=== PATIENT | male | born 1990 | race Caucasian/White ===

== ENCOUNTER → 2021-09-25 | Outpatient (CLI) | payer BC ==
[2021-09-25 10:22] LABS: BASO # 0.04 K/mm3 (0.02-0.10); EOS % 2.1 % (0.0-4.0); HEMOGLOBIN 14.8 g/dL (13.5-18.0); MEAN CELL VOLUME 85 fl (78-100); MEAN CORPUSCULAR HEMOGLOBIN 28 pg (27-31); MEAN CORPUSCULAR HGB CONC 33 g/dL (33-37); MEAN PLATELET VOLUME 9.6 fl (7.4-10.4); MONO # 0.45 K/mm3 (0.20-0.80); NEU # 2.83 K/mm3 (1.40-6.50); PLATELET COUNT 304 K/mm3 (130-400); RED CELL DISTRIBUTION WIDTH 11.9 % (11.5-14.5); WHITE BLOOD COUNT 4.8 K/mm3 (4.8-10.8)
[2021-09-25 10:28] LABS: ALBUMIN 4.3 g/dL (3.5-5.0); POTASSIUM 4.1 mmol/L (3.5-5.1)
[2021-09-25 10:29] LABS: CALCIUM 9.3 mg/dL (8.3-10.5)
[2021-09-25 10:31] LABS: TOTAL PROTEIN 7.5 g/dL (6.4-8.3)
[2021-09-25 10:32] LABS: TOTAL BILIRUBIN 0.6 mg/dL (0.2-1.2)
== END ==
LOC: LAB 10:00
PROVIDERS: Physician Assistant
DX: Z00.00 Encounter for general adult medical examination without abnormal findings (principal); Z13.1 Encounter for screening for diabetes mellitus; I10 Essential (primary) hypertension; Z83.3 Family history of diabetes mellitus; Z13.220 Encounter for screening for lipoid disorders

== ENCOUNTER 2024-11-02 14:37 | Emergency (ER) | payer OTHER ==
[~2024-11-02] VITALS: Ht 177.8 cm; Wt 112.7 kg
[2024-11-02] MEDS ORDERED: AMLODIPINE BESYL5 MG PO (14:55)
[2024-11-02] MEDS ORDERED: LISINOPRIL40 MG PO (14:55)
[2024-11-02 15:37] LABS: BASO # 0.03 K/mm3 (0.02-0.10); EOS # 0.06 K/mm3 (0.04-0.40); EOS % 0.8 % (0.0-4.0); HEMATOCRIT 46.5 % (42.0-52.0); HEMOGLOBIN 15.1 g/dL (13.5-18.0); LYMPH# 0.76 K/mm3 (1.50-4.00); MEAN CELL VOLUME 84 fl (78-100); MEAN CORPUSCULAR HEMOGLOBIN 27 pg (27-31); MEAN CORPUSCULAR HGB CONC 33 g/dL (33-37); MEAN PLATELET VOLUME 9.9 fl (7.4-10.4); MONO # 0.67 K/mm3 (0.20-0.80); NEU # 5.85 K/mm3 (1.40-6.50); PLATELET COUNT 263 K/mm3 (130-400); RED BLOOD COUNT 5.51 M/mm3 (4.20-5.60); RED CELL DISTRIBUTION WIDTH 12.6 % (11.5-14.5); WHITE BLOOD COUNT 7.4 K/mm3 (4.8-10.8)
[2024-11-02 16:07] LABS: ALBUMIN 4.1 g/dL (3.5-5.0)
[2024-11-02 16:09] LABS: TOTAL PROTEIN 8.2 g/dL (6.4-8.3)
[2024-11-02 16:11] LABS: TOTAL BILIRUBIN 0.4 mg/dL (0.2-1.2)
[2024-11-02] MEDS ORDERED: Ketorolac 30 MG/ML VIAL IV ONE (16:45)
[2024-11-02] MEDS ORDERED: KETOROLAC10 MG PO (17:25)
[2024-11-02 17:31] VITALS: BP 126/82
== END 2024-11-02 17:34 | disposition home or self-care (01) ==
LOC: ED 14:37
PROVIDERS: Physician Assistant
DX: I10 Essential (primary) hypertension (principal); B34.9 Viral infection, unspecified; R50.9 Fever, unspecified; Z91.148 Patient's other noncompliance with medication regimen for other reason
CPT/HCPCS: J1885